=== PATIENT | female | born 1980 | race Caucasian/White ===

== ENCOUNTER 2017-11-20 17:20 | Emergency (ER) | payer OTHER, SELFPAY ==
--- NOTE | 2017-11-20 17:25 | ED.ALLEREA ---
HPI - Allergic Reaction <PATO James - Last Filed: 11/20/17 22:45> General Chief complaint: Allergic Reaction Stated complaint: BEE STING, STATES ALLERGIC Time Seen by Provider: 11/20/17 17:25 History of Present Illness HPI narrative: 37-year-old female here for complaint of taking too much Benadryl after bee sting. She reports that she got stung by 2 bees earlier this afternoon while she was hiking. She reports she generates localized swelling after bees stings so she started taking Benadryl. She denies having a history of having anaphylaxis with bee stings however she was prescribed epi pens by her primary care provider due to the amount of localized response that she generated and was concerned that it could be worse response with more stings. She was drinking liquid and Children's Benadryl out of the bottle when she noticed that she had drank too much she states she drank most of the bottle. She haslocalized pain with some slight redness to the areas that she got stung by bees. She denies any tightness in her throat. She denies any shortness of breath. She states that after she noticed she drank too much Benadryl she felt anxious. No chest pain. She is able to ambulate into the emergency room. No other symptoms Related Data Previous Rx's Medication Instructions Recorded cetirizine [All Day Allergy Relief 10 mg PO DAILY #5 tab 11/20/17 (cetirizine)] epinephrine [EpiPen 2-Abiel] 0.3 mg IM Q10M PRN #2 each 11/20/17 prednisone 40 mg PO DAILY #4 tab 11/20/17 Allergies Allergy/AdvReac Type Severity Reaction Status Date / Time cephalexin [From Keflex] Allergy Verified 11/20/17 18:42 Sulfa (Sulfonamide Allergy Verified 11/20/17 18:41 Antibiotics) Penicillins AdvReac Verified 11/20/17 18:41 Review of Systems <PATO James - Last Filed: 11/20/17 22:45> Review of Systems Accidental overdose of Benadryl Constitutional Denies chills, Denies fever(s), Denies lethargy and Denies weakness Comments: Insect stings to abdomen and to left thigh. Eyes Denies change in vision, Denies eye discharge, Denies irritation and Denies loss of vision ENT Ears, Nose, Mouth, and Throat: Denies change in voice, Denies neck pain and Denies sore throat Cardiovascular Denies chest pain, Denies irregular heart rhythm, Denies lightheadedness, Denies palpitations, Denies dyspnea, Denies dyspnea on exertion and Denies orthopnea Respiratory Denies cough, Denies dyspnea, Denies dyspnea on exertion and Denies wheezing Gastrointestinal Gastrointestinal: Denies abdominal pain, Denies change in bowel habits, Denies diarrhea, Denies nausea and Denies vomiting Musculoskeletal Denies neck pain Integumentary/Breasts Denies pruritus, Denies erythema, Denies rash and Denies wounds Neurologic Denies confusion, Denies loss of vision and Denies weakness Psychiatric Denies anxiety, Denies confusion, Denies depression, Denies homicidal ideation and Denies suicidal ideation Endocrine Denies palpitations Allergic/Immunologic Denies wheezing Exam <PATO James - Last Filed: 11/20/17 22:45> Initial Vital Signs Initial Vital Signs: Vital Signs Temperature 98.4 F 11/20/17 17:30 Pulse Rate 92 H 11/20/17 17:30 Respiratory Rate 19 11/20/17 17:30 Blood Pressure 119/82 H 11/20/17 17:30 Pulse Oximetry 100 11/20/17 17:30 Const General: cooperative and well developed Nutritional Appearance: well nourished Orientation: alert, awake, oriented x3 and not confused [facility] Head: normocephalic and atraumatic Ears: external ears normal and TM's normal bilaterally Nose: external nose normal Face and sinus: sinuses nontender and face symmetric Mouth: oral mucosae normal and moist mucous membranes Teeth and gingiva: dentition normal Throat: posterior oropharynx normal, tonsils normal and uvula midline Eyes Conjunctivae: conjunctivae normal Sclera: sclerae normal Pupils: PERRL EOM: EOM intact bilaterally Neck Neck: normal visual inspection, trachea midline, No lymphadenopathy, No midline deformity and No JVD Lymphatic: No lymphedema Resp Effort & Inspection: normal respiratory effort, able to speak in complete sentences, no respiratory distress and no use of accessory muscles Auscultation: clear to auscultation bilaterally, no rales, no rhonchi and no wheezes Cardio Rate: regular rate Rhythm: regular rhythm Heart Sounds: no click, no gallops, no murmurs and no rubs Pulses: normal peripheral pulses Skin Other: Circular 3 cm areas of erythema non raised to the left thigh and also to left abdomen Neuro General: alert, oriented x3, gait normal and no focal motor deficits Speech: speech normal <Jhoan Matthews DO - Last Filed: 11/21/17 02:47> Initial Vital Signs Initial Vital Signs: Vital Signs Temperature 98.4 F 11/20/17 17:30 Pulse Rate 92 H 11/20/17 17:30 Respiratory Rate 19 11/20/17 17:30 Blood Pressure 119/82 H 11/20/17 17:30 Pulse Oximetry 100 11/20/17 17:30 Course <PATO James - Last Filed: 11/20/17 22:45> Orders Ordered: Discontinued Medications Prednisone (Deltasone) 40 mg PO NOW ONE Stop: 11/20/17 18:25 Last Admin: 11/20/17 18:45 Dose: Not Given Prednisone (Deltasone) 40 mg PO NOW ONE Stop: 11/20/17 22:13 Last Admin: 11/20/17 22:13 Dose: 40 mg Vital Signs - 8 hr 11/20/17 19:03 11/20/17 20:15 11/20/17 21:07 Pulse Rate 86 86 97 H Respiratory Rate 18 18 16 Blood Pressure [Left Arm] 97/57 L 117/57 L 121/59 H Pulse Oximetry 100 99 97 11/20/17 22:15 Pulse Rate 101 H Respiratory Rate 21 Blood Pressure [Left Arm] 124/64 H Pulse Oximetry 99 <Jhoan Matthews DO - Last Filed: 11/21/17 02:47> Orders Ordered: Discontinued Medications Prednisone (Deltasone) 40 mg PO NOW ONE Stop: 11/20/17 18:25 Last Admin: 11/20/17 18:45 Dose: Not Given Prednisone (Deltasone) 40 mg PO NOW ONE Stop: 11/20/17 22:13 Last Admin: 11/20/17 22:13 Dose: 40 mg Vital Signs - 8 hr 11/20/17 19:03 11/20/17 20:15 18 21:07 Pulse Rate 86 86 97 H Respiratory Rate 18 18 16 Blood Pressure [Left Arm] 97/57 L 117/57 L 121/59 H Pulse Oximetry 100 99 97 11/20/17 22:15 Pulse Rate 101 H Respiratory Rate 21 Blood Pressure [Left Arm] 124/64 H Pulse Oximetry 99 MDM - Allergic Reaction <APTO James - Last Filed: 11/20/17 22:45> MDM Narrative Medical decision making narrative: Subtracting the amount that was left in the bottle from the amount of a full bottle indicates that the patient took about 210 mg of Benadryl. Discussed case with poison Control states that patient should be able to tolerate well however we should monitor her for approximately 5 hr to ensure that she is doing well. She was given prednisone in the emergency room to prevent localized reaction to the bee states that she states that she normally gets. She is given a short course of prednisone over the next few days to also help prevent localized infection. Zyrtec prescribed for antihistamine effects over the next few days. Refill of her EpiPen some were provided as well. Patient was observed and had no ill affects. Her vital signs remained stable. She is released home. Follow up with primary care provider in the next few days to ensure doing well. For any worsening symptoms return to the emergency room. Discharge Plan Departure Patient Disposition: Home, Self-Care Clinical Impression: Accidental overdose, Accidental insect sting Discharge Date/Time: 11/20/17 22:42 Interventions: ED Discharge Assessment Last Done: 11/20/17 22:41 Instructions: DI for Insect Bites and Stings Prescriptions: New prednisone 20 mg tablet 40 mg PO DAILY Qty: 4 RF: 0 epinephrine [EpiPen 2-Abiel] 0.3 mg/0.3 mL auto-injector 0.3 mg IM Q10M PRN (Reason: anaphylaxis) Qty: 2 RF: 0 cetirizine [All Day Allergy Relief(cetir)] 10 mg tablet 10 mg PO DAILY Qty: 5 RF: 0 Referrals: Valdez Shine MD [Primary Care Provider] - <hJoan Matthews DO - Last Filed: 11/21/17 02:47> Cosign ED Attending Cosbarneyature Attestation: I was immediately available in the department for consultation. Documentation has been reviewed. I agree with assessment and plan.
[2017-11-20 17:30] VITALS: BP 119/82; PULSE 92; RESP 19; TEMP 36.9; O2SAT 100; BMI 20.5
[2017-11-20 18:38] VITALS: BP 121/81; PULSE 93; RESP 18; O2SAT 100
[2017-11-20 19:03] VITALS: BP 97/57; PULSE 86; RESP 18; O2SAT 100
[2017-11-20 20:15] VITALS: BP 117/57; PULSE 86; RESP 18; O2SAT 99
[2017-11-20 21:07] VITALS: BP 121/59; PULSE 97; RESP 16; O2SAT 97
[2017-11-20] MEDS: predniSONE 20 MG TABLET 40 MG PO (22:13)
[2017-11-20 22:15] VITALS: BP 124/64; PULSE 101; RESP 21; O2SAT 99
== END 2017-11-20 22:42 | disposition home or self-care (01) ==
PROVIDERS: Emergency Provider Nurse Practitioner Family; Family Provider Family Medicine; PCP Family Medicine
DX: T45.0X1A Poisoning by antiallergic and antiemetic drugs, accidental (unintentional), initial encounter (principal); T63.441A Toxic effect of venom of bees, accidental (unintentional), initial encounter
CPT/HCPCS: 99283

== ENCOUNTER 2022-09-01 17:56 | Emergency (ER) | payer OTHER, SELFPAY ==
[2022-09-01 17:56] VITALS: BP 122/90; PULSE 130; RESP 24; TEMP 36.6; O2SAT 99
[2022-09-01 17:57] VITALS: BP 122/74; PULSE 134; O2SAT 100
[2022-09-01 18:00] VITALS: BP 122/90; PULSE 139; O2SAT 100
[2022-09-01 18:31] VITALS: PULSE 109
[2022-09-01] MEDS: LORazepam 0.5 MG TABLET PO (18:38)
[2022-09-01] MEDS: KETOROLAC 30 MG/ML VIAL 15 MG IV (18:38)
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
--- NOTE | 2022-09-01 18:52 | PC.NURSE ---
Patient presents to the ER by EMS. Patient is anxious, shaking I am a neurotic person and struggle with anxiety anyways Patient reports some pain and stiffness in her neck, between shoulder blades. Denies headache. Denies C-spine tenderness upon palpation. Patient sinus tachycardia. Patient denies chest pain or SOB.
[2022-09-01 19:27] VITALS: BP 122/68; PULSE 104; RESP 18; O2SAT 99
== END 2022-09-01 19:30 | disposition home or self-care (01) ==
PROVIDERS: Emergency Provider Nurse Practitioner Critical Care Medicine; Family Provider Family Medicine
DX: F41.0 Panic disorder [episodic paroxysmal anxiety] (principal); M25.512 Pain in left shoulder; V89.2XXA Person injured in unspecified motor-vehicle accident, traffic, initial encounter
CPT/HCPCS: 81003; 81025; 96374; 99284; J1885